=== PATIENT | female | born 2000 | race Caucasian/White ===

== ENCOUNTER 2023-01-10 22:50 | Emergency (ER) | payer OTHER, SELFPAY ==
--- NOTE | 2023-01-10 | ECG_ITS ---
Test Reason : SYNCOPE Blood Pressure : / mmHG Vent. Rate : 083 BPM Atrial Rate : 083 BPM P-R Int : 132 ms QRS Dur : 070 ms QT Int : 358 ms P-R-T Axes : 039 054 030 degrees QTc Int : 420 ms Normal sinus rhythm with sinus arrhythmia Normal ECG No previous ECGs available Referred By: Generic ED Physician Electronically Signed By:MAIRA MA MD
[2023-01-10 22:59] VITALS: BP 102/48; PULSE 90; O2SAT 100; BMI 20.4
[2023-01-10 23:04] VITALS: BP 105/56; PULSE 81; RESP 16; TEMP 36.9; O2SAT 99
[2023-01-10 23:20] VITALS: O2SAT 98
[2023-01-10 23:21] LABS: MANUAL DIFF FLAG NO
[2023-01-10 23:22] LABS: Basophils Percent Auto 0.1 % (0-2); Eosinophils Absolute Auto 0.1 X10*3/uL (0.0-0.4); Eosinophils Percent Auto 1.5 % (0-4); Hematocrit 31.9 % (37.0-47.0); Hemoglobin 10.8 g/dl (12.0-16.0); Imm Gran Abs Auto 0.04 X10*3/uL (0.00-0.03); Imm Gran Pct Auto 0.5 % (0.0-0.4); Lymphocytes Absolute Auto 1.8 X10*3/uL (1.2-4.9); Lymphocytes Percent Auto 21.5 % (20-40); Mean Corpuscular HGB Conc 33.9 g/dl (31.0-35.0); Mean Corpuscular Hemoglobin 30.4 pg (27.0-33.0); Mean Corpuscular Volume 89.9 fL (80.0-98.0); Mean Platelet Volume 9.6 fL (9.4-12.3); Monocytes Absolute Auto 0.6 X10*3/uL (0.1-1.2); Monocytes Percent Auto 6.7 % (2-11); Neutrophils Absolute Auto 5.9 x10*3/uL (2.0-8.3); Neutrophils Percent Auto 69.7 % (45-73); Platelet Count 202 X10*3/uL (160-400); Red Blood Count 3.55 X10*6/uL (4.20-5.50); Red Cell Distribution Width 13.3 % (11.0-16.0); White Blood Count 8.4 X10*3/uL (4.8-10.8)
[2023-01-10 23:40] LABS: Alanine Aminotransferase 43 U/L (0-31); Albumin Level 3.5 g/dL (3.5-5.0); Alkaline Phosphatase 72 U/L (39-117); Anion Gap 12 (12-20); Aspartate Amino Transferase 31 U/L (5-31); Bilirubin Total 0.1 mg/dL (0.0-1.0); Blood Urea Nitrogen 8 mg/dL (9-16); Calcium 8.5 mg/dL (8.4-10.2); Carbon Dioxide 21 mmol/L (22-29); Chloride 108 mmol/L (96-108); Creatinine Clr Calc Pharmacy 109.9; Estimated Glomerular Filt Rate > 60; Glucose Random 88 mg/dL (60-115); Potassium 3.6 mmol/L (3.3-5.1); Sodium 137 mmol/L (135-145); Total Protein 6.4 g/dL (6.5-8.0)
[2023-01-10 23:55] LABS: Appearance Urine Clear; Color Urine Yellow; Glucose Urine UA Negative (Negative); Leukocyte Esterase Urine Trace (Negative); Nitrite Urine Negative (Negative); PH 7.5 (5.0-9.0); UMIC TRIGGER UACC YES; Urine Blood Negative (Negative); Urine Ketones Negative (Negative); Urine Protein Negative (Neg-Trace)
[2023-01-11] VITALS (7 sets, daily range): BP systolic 94–125; BP diastolic 50–70; PULSE 70–108; RESP 15–19; TEMP 36.6–36.7; O2SAT 96–100
[2023-01-11] LABS: Bacteria Urine None Seen (None Seen); Hyaline Casts Urine 0-2 /LPF (0-2); RBC Urine 0-2 /HPF (0-2); Squamous Epithelial Cell Urine 0-2 /HPF (0-2); WBC Urine 0-5 /HPF (0-5)
[2023-01-11 00:02] LABS: Troponin-I High Sensitivity < 2.7 ng/L (<3.5-17.0)
--- OUTSIDE RECORDS SUMMARY | 2023-01-11 00:06 | XMS_ITS | Continuity of Care Document ---
Author Name Unknown Organization [facility] al Address [address] [place] [address]- Care Team Providers Care Vein Pumper Name Role Phone Not on Staff, PCP Primary Care Physician Unavail able Encounter [facility] Date(s): 12/14/22 - 12/14/[address] [address]- Discharge Disposition: A-D/C Home Attending Physician: Foreign Bravo MD Admitting Physician: Foreign Bravo MD Referring Physician: Not on Staff, Referring MD Allergies, Adverse Reactions, Alerts No Known Medication Allergies Medications Ondansetron 0 Refills, Maintenance, 12/14/22 13:46:00 EDT, Partial fill upon patient request if the prescription is for a schedule II opioid drug. Start Date: 12/14/22 Status: Ordered Multivitamins By Mouth, Daily, 0 Refills, Maintenance, 12/14/22 13:46:00 EDT, Partial fill upon patient request if the prescription is for a schedule II opioid drug. Start Date: 12/14/22 Status: Ordered Sertraline By Mouth, Daily, 0 Refills, Maintenance, 12/14/22 13:46:00 EDT, Partial fill upon patient request if the prescription is for a schedule II opioid drug. Start Date: 12/14/22 Status: Ordered Problem List Condition Confirmation Course Effective Dates Status Health St atus Informant Underweight Confirmed Active Vital Signs Most recent to oldest [Reference Range]: 1 2 3 Height 159 cm (12/14/22 4:25 PM) 159 cm (12/14/22 1:45 PM) 159 cm (12/14/22 1:42 PM) Weight 48.6 kg (12/14/22 1:45 PM) Oxygen Saturation [94-100 %] 98 % (12/14/22 1:45 PM) 100 % (12/14/22 1:42 PM) Pulse Rate [55-90 bpm] 92 bpm *H* (12/14/22 4:25 PM) 135 bpm *H* (12/14/22 1:45 PM) 129 bpm *H* (12/14/22 1:42 PM) Blood Pressure [90-138/55-84 mm Hg] 120/70mm Hg (12/14/22 1:45 PM) Respiratory Rate [16-30 br/min] 18 br/min (12/14/22 1:45 PM) 14 br/min *L* (12/14/22 1:42 PM) Temperature [96.8-100.4 DegF] 98.1 DegF (12/14/22 1:45 PM) Mode of Delivery (Oxygen) Room air (12/14/22 1:45 PM) Room air (12/14/22 1:42 PM) Temperature Route Temporal (12/14/22 1:45 PM) Dry Weight 48.6 kg (12/14/22 1:45 PM) Note * Carlos Eduardo Polo: PERFORM Event Display: Patient Education Leaflets Authored Date: [id number] Bronchitis, No Antibiotics (Adult) ?? [id number] Bronchitis, No Antibiotics (Adult) Bronchitis is inflammation and swelling of the air passages (bronchial tubes) in your lungs. This is often caused by an infection. Your bronchitis was caused by a virus.??Symptoms include a dry, hacking cough that is worse at night. The cough may bring up yellow-green mucus. You may also feel shortof breath or wheeze. Other symptoms may include tiredness, chest discomfort, fever, and chills. This illness can be spread to other people in the first few days. It is spread through the air by coughing and sneezing. It is also spread by direct contact. This means touching the sick person and then touching your own eyes, nose, or mouth. Bronchitis that is caused by a virus is often not treated with antibiotic medicine. Instead, medicines may be given to help relieve symptoms. Symptoms can last up to 2 weeks. The cough may last much longer. Home care Follow these guidelines when caring for yourself at home: ??? If your symptoms are severe, rest at home for the first 2 to 3 days. When you go back to your daily tasks, don't let yourself get too tired. ??? Do not smoke. Stay away from secondhand smoke. ??? You may use raop-hdr-cjzdlfb medicine to control fever or pain. Or use another pain medicine as prescribed.??If you have chronic liver or kidney disease or have ever had a stomach ulcer or bleeding in your stomach or intestines, talk with your healthcare provider before using these medicines. Also talk to your provider if you are taking medicine to prevent blood clots. Aspirin should never be taken by anyone under age 18 who has a virus or fever. It may cause severe liver or brain damage. ??? Your body needs a lot of fluids now. Drink 6 to 8 glasses of fluids per day. This includes water, soft drinks, sports drinks, juices, tea, or soup. Extra fluids will help loosen mucus in your nose and lungs. ??? Your appetite may be low. A light diet is fine. ??? Gylg-zmg-duemdpo cough, cold, and sore-throat medicines will not shorten the manda gth of the illness. But they may help to reduce your symptoms. Don't use decongestants if you have high blood pressure. ?? Follow-up care Follow up with your healthcare provider, or as advised. If you had an X-ray or ECG (electrocardiogram), a specialist will review it. You will be told of any results that may affect your care. Ask your healthcare provider about the pneumococcal vaccines and a yearly flu shot. There are 2 kinds of pneumococcal vaccines. You may need both. You???re at higher risk of lung infection if any of these apply to you: ??? You are age 65 or older ??? You have a chronic lung disease ??? You have condition that affects your immune system ??? You smoke ?? When to get medical care Call your healthcare provider right away if you have any of these: ??? Fever of 100.4??F (38??C) orhigher ??? Coughing up more mucus ??? Facial pain or ear pain ??? Mild weakness, drowsiness, headache, or a stiff neck ?? Call 911 Call 911 if any of these occur: ??? Coughing up blood ??? Weakness, drowsiness, headache, or stiff neck that get worse ??? Trouble breathing, wheezing, or pain with breathing ??? Lips or skin looks blue, purple, or gabriel in color ??? Feeling of doom ?? Last Reviewed Date: 2021 ?? 0089-6226 [employer]. All rights reserved. This information is not intended as a substitute for professional medical care. Always follow your healthcare professional's instructions. ?? Patient Care team information Care Team Personnel Name: Not on Staff, PCP Position: [facility] Physician (General Medicine) Member Role: PCP Name: Irene Loera Position: [facility] ED RN W/OE and Tasks Member Role: Patient Care Provider Name: Foreign Bravo MD Position: [facility] ED Medicine MD Member Role: Admitting Physician Address: Address: [address] [place] [address]- [place] [address]- Name: Carlos Eduardo Polo Position: [facility] Associate Professional Member Role: ED Physician Out And Out Cigar Maker Hand Address: Address: [address] [place] [address] [place] [address]- Name: Lillie Polanco Position: [facility] ED TA [facility] Care Team Related Persons Name: NIRU MARIN Address: home [address] [place] [id number]
--- OUTSIDE RECORDS SUMMARY | 2023-01-11 00:06 | XMS_ITS | Continuity of Care Document ---
Author Name Unknown Organization [facility] [place] Address [address] [place] [address]- Care Team Providers Care Gear Shaver Set Up Operator Name Role Phone Not on Staff, PCP Primary Care Physician Unavail able Encounter [facility] Date(s): 04/02/22 - 05/02/22 [facility] [place] [address], [place] [address] Allergies, Adverse Reactions, Alerts No Known Medication Allergies Problem List Condition Confirmation Course Effective Dates Status Health St atus Informant Underweight Confirmed Active Patient Care team information Care Team Personnel Name: Not on Staff, PCP Position: S Physician (General Medicine) Member Role: PCP Care Team Related Persons Name: INRU MARIN Address: home [address] [place] [address]
--- OUTSIDE RECORDS SUMMARY | 2023-01-11 00:06 | XMS_ITS | Continuity of Care Document ---
Author Name Unknown Organization [facility] Address [address] [place] [address]- Care Team Providers Care Chain Carrier Name Role Phone Not on Staff, PCP Primary Care Physician Unavail able Encounter [facility] Date(s): 04/03/22 - 05/03/22 [facility] Adult [address] [place] [address]- Allergies, Adverse Reactions, Alerts No Known Medication Allergies Problem List Condition Confirmation Course Effective Dates Status Health St atus Informant Underweight Confirmed Active Patient Care team information Care Team Personnel Name: Not on Staff, PCP Position: S Physician (General Medicine) Member Role: PCP Care Team Related Persons Name: TOMASNIRU Address: home [address] [place] [address]
--- OUTSIDE RECORDS SUMMARY | 2023-01-11 00:06 | XMS_ITS | Continuity of Care Document ---
Author Name Unknown Organization [facility] Address [address] [place] [address]- Care Team Providers Care Sausage Machine Operator Name Role Phone Not on Staff, PCP Primary Care Physician Unavail able Encounter [facility] [id number] Date(s): 04/10/22 - 06/29/[address] [address]- Attending Physician: Lavern SONI, Iwona Oliveira Referring Physician: Keaton Nascimento Allergies, Adverse Reactions, Alerts No Known Medication Allergies Problem List Condition Confirmation Course Effective Dates Status Health St atus Informant Underweight Confirmed Active Patient Care team information Care Team Personnel Name: Not on Staff, PCP Position: S Physician (General Medicine) Member Role: PCP Care Team Related Persons Name: MARGARETTE MARINLUBA Address: home [address] [place] [address]
--- OUTSIDE RECORDS SUMMARY | 2023-01-11 00:06 | XMS_ITS | Continuity of Care Document ---
Author Name Unknown Organization [facility] Address [address] [place] [address]- Care Team Providers Care Continuous Process Machine Operator Name Role Phone Not on Staff, PCP Primary Care Physician Unavail able Encounter [facility] [id number] Date(s): 12/27/21 - 12/27/[address] [address]- Discharge Disposition: A-D/C Home Attending Physician: Dieter SONI, Mac Luis Admitting Physician: Mac Garcias MD Referring Physician: Not on Staff, Referring MD Allergies, Adverse Reactions, Alerts No Known Medication Allergies Problem List Condition Confirmation Course Effective Dates Status Health St atus Informant Underweight Confirmed Active Vital Signs Most recent to oldest [Reference Range]: 1 2 3 Height 160 cm (12/27/21 1:10 PM) 160 cm (12/27/21 11:03 AM) 160 cm (12/27/21 11:01 AM) Weight 45.7 kg (12/27/21 1:10 PM) 45.7 kg (12/27/21 11:03 AM) 45.7 kg (12/27/21 11:01 AM) Oxygen Saturation [94-100 %] 100 % (12/27/21 3:00 PM) 100 % (12/27/21 1:10 PM) 100 % (12/27/21 11:01 AM) Pulse Rate [55-90 bpm] 82 bpm (12/27/21 3:00 PM) 79 bpm (12/27/21 1:10 PM) 81 bpm (12/27/21 11:01 AM) Body Mass Index [18.5-24.99 kg/m2] 17.85 kg/m2 *L* (12/27/21 1:10 PM) 17.85 kg/m2 *L* (12/27/21 11:01 AM) Blood Pressure [90-138/55-84 mm Hg] 117/70mm Hg (12/27/21 3:00 PM) 106/63mm Hg (12/27/21 1:10 PM) 114/76mm Hg (12/27/21 11:01 AM) Respiratory Rate [16-30 br/min] 16 br/min (12/27/21 3:00 PM) 18 br/min (12/27/21 1:10 PM) 18 br/min (12/27/21 11:01 AM) Temperature [96.8-100.4 DegF] 98.1 DegF (12/27/21 11:01 AM) Mode of Delivery (Oxygen) Room air (12/27/21 3:00 PM) Room air (12/27/21 1:10 PM) Room air (12/27/21 11:01 AM) Blood pressure sites Arm, left (12/27/21 1:10 PM) Arm, left (12/27/21 11:01 AM) Temperature Route Temporal (12/27/21 11:01 AM) Dry Weight 45.7 kg (12/27/21 1:10 PM) 45.7 kg (12/27/21 11:03 AM) 45.7 kg (12/27/21 11:01 AM) Weight Obtained Via Standing scale (12/27/21 11:01 AM) Patient Care team information Personnel Name: Not on Staff, PCP
--- OUTSIDE RECORDS SUMMARY | 2023-01-11 00:06 | XMS_ITS | Continuity of Care Document ---
Author Name Unknown Organization [facility] Address [address] [place] [address]- Care Team Providers Care Forest Supervisor Name Role Phone Not on Staff, PCP Primary Care Physician Unavail able [id number] Date(s): 04/10/22 - 05/10/22 [facility] [address] [place] [address]- Allergies, Adverse Reactions, Alerts No Known Medication Allergies Problem List Condition Confirmation Course Effective Dates Status Health St atus Informant Underweight Confirmed Active Patient Care team information Care Team Personnel Name: Not on Staff, PCP Position: S Physician (General Medicine) Member Role: PCP Care Team Related Persons Name: NIRU MARIN Address: home [address] [place] [address]
--- OUTSIDE RECORDS SUMMARY | 2023-01-11 00:06 | XMS_ITS | Continuity of Care Document ---
Author Name Unknown Organization [facility] Address [address] [place] [address]- Care Team Providers Care Inspector And Clerk Name Role Phone Not on Staff, PCP Primary Care Physician Unavail able Encounter [facility] [id number] Date(s): 05/30/22 - 06/29/22 [facility] [place] [address]- Attending Physician: Felton Lerma Admitting Physician: Felton Lerma Referring Physician: Admtr [id number] Allergies, Adverse Reactions, Alerts No Known Medication Allergies Problem List Condition Confirmation Course Effective Dates Status Health St atus Informant Underweight Confirmed Active Patient Care team information Care Team Personnel Name: Not on Staff, PCP Position: S Physician (General Medicine) Member Role: PCP Care Team Related Persons Name: TOMASNIRU Address: home [address] [place] [address]
--- NOTE | 2023-01-11 03:42 | PC.NURSE ---
This RN assumed care of patient at 1500. Pt continues to rest on stretcher, respirations even and unlabored, skin pwd, alert and oriented x4. Pt reports feeling dizzy at this time. This RN educated patient to not get up without assistance. Pt agreeable. Awaiting provider at this time
--- NOTE | 2023-01-11 06:10 | PC.NURSE ---
This RN assessed heart tones, strong heart beat at 138 BPM.
--- NOTE | 2023-01-11 06:27 | ED.SYNCOPE ---
HPI - Syncope General Chief Complaint: Syncope Stated Complaint: SYNCOPAL EPISODE, PER EMS Time Seen by Provider: 01/11/23 06:24 Source: patient and EMS Mode of arrival: EMS Limitations: no limitations History of Present Illness HPI narrative: 22 yo female who is currently 20w6d presents to the ER for evaluation of a syncopal episode that happened yesterday. She states she woke up yesterday feeling very dizzy. She was nauseated and vomited x3. She felt weak and fatigued. No fever, chills, abdominal pain, pelvic pain, cramping or vaginal bleeding. She states last night when she was sitting on the ground with her partner she had a brief syncopal episode lasting about 5 seconds. Prior to this she felt like the whole room was spinning. No history of similar episodes. No post event confusion. No SOB or chest pain. Still feels dizzy and nauseous. She reports decreased movement this morning but she has not had anything to eat since yesterday at 4pm. FHT 138 this morning. complaint: loss of consciousness and felt faint Onset (ago): hour(s) (10) Duration of episode: 5 -: second(s) Prodromal symptoms: vision changes, lightheaded and nausea/vomiting Witnessed: Yes - by Bystander Context: at rest Injuries sustained associated with event: none Current symptoms: lightheaded and nausea History: other () Treatments prior to arrival: none Related Data Allergies Allergy/AdvReac Type Severity Reaction Status Date / Time No Known Allergies Allergy Verified 01/10/23 23:05 Review of Systems Review of Systems: Yes all other systems are reviewed and are negative [facility] Social History Social History Smoked in Last 30 Days: No Advance Directives: No Advance Directives Information Provided: No Patient : Yes Physical Exam Vital Signs: Vital Signs: Last Vital Signs Temp 98.0 F 01/11/23 03:42 Pulse 88 01/11/23 10:14 Resp 16 01/11/23 10:14 BP 94/62 01/11/23 10:14 Pulse Ox 98 01/11/23 10:14 O2 Del Method Room Air 01/11/23 10:14 BMI result Body Mass Index 20.4 Appearance: Alert. Oriented X3. No acute distress. Head: normocephalic, atraumatic. Eyes: Pupils equal, round and reactive to light. ENT: Pharynx normal. No tonsillar swelling or exudate. Neck: Normal inspection. Neck supple. CVS: Normal heart rate and rhythm. Pulses normal. Respiratory: No respiratory distress. Breath sounds normal. Abdomen: Soft w/ gravid uterus palpable at the level of the ubilicus. normal active +BS x4 Skin: Skin warm and dry. Normal skin color. Normal skin turgor. No rashes. Extremities: No lower extremity edema. No joint swelling. Neuro/psych: Oriented X 3. No motor deficit. No sensory deficit. CN II-XII intact. Normal speech and cognition. Course Reevaluation(s) Reevaluation #1: Spoke with Dr. Tran Sanchez OB at [facility] who is recommending keeping the patient here, continue IVF and monitoring medically. No role for monitoring given she is only 20 weeks. Time: 07:58 Reevaluation #2: patient given 2L IVF. she is feeling better and tolerating PO. up and ambulating around the ER. at this time comfortable w/ discharge home with close OB follow up. strict return precautions discussed Time: 10:40 Consultations Consultation #1: OB Dr. Rider Medications Administered Discontinued Medications Generic Name Dose Route Start Last Admin Trade Name Freq PRN Reason Stop Dose Admin Sodium Chloride 1,000 mls @ 999 mls/hr 01/11/23 07:00 01/11/23 08:38 Ns IVCONT 01/11/23 08:00 Infused .Q1H1M TONEY Infusion Sodium Chloride 1,000 mls @ 999 mls/hr 01/11/23 09:00 01/11/23 10:13 Ns IVCONT 01/11/23 10:00 Infused .Q1H1M TONEY Infusion Ondansetron HCl 4 mg 01/11/23 06:51 01/11/23 07:05 Ondansetron Hcl 4 Mg/2 Ml Vial IVPUSH 01/11/23 06:52 4 mg ONCE ONE Administration Medical Decision Making Medical Decision Making MDM Narrative: 22 yo currently 20w6d presenting with dizziness, N/V, and brief syncopal episode last night. Mild tachycardia on arrival w/ BP 90-100s. Orthostatic VS are negative. Labs show very mild anemia. She had unremarkable EKG and troponin negative x2. Her syncopal episode is most likely due to hypovolemia, possible vasovagal syncope. Highly doubt PE with no hypoxia, chest pain, SOB or evidence of DVT on exam. Trop negative reassuing - if had clot burden enough to cause hemodyanamic collapse would expect trop leak and other symptoms. case d/w dr. rider who recommended tx to [facility] for medical monitoring, not monitoring. FHT here 138 spoke w/ OB at [facility] who recommends patient stay here for ongoing medical management of syncope and dehydration given 2L IVF and zofran. up and ambulating, tolerating po and feeling better at this time comfortable w/ discharge home with close OB follow up. strict return precautions were discussed w/ patient and partner who agree w/ plan. Differential Diagnosis Differential Diagnoses: The differential diagnosis associated with the presentation includes orthostatic hypotension, vasovagal syncope, dehydration/hypovolemia, less likely pulmonary embolism Admission/Observation Consideration of admission/observation: Escalation of care including admission/observation considered Consult Healthcare Provider Management of the patient was discussed with: Internet Sales Director Dr. Rider recommend transferring to [facility] for monitoring Lab Data MDM Lab Attestation statement: I reviewed the patient's lab results. mild anemia, trop negative x2 01/10/23 23:15 01/10/23 23:15 Labs: Lab Results 01/10/23 01/10/23 01/11/23 Range/Units 23:15 23:34 06:03 WBC 8.4 (4.8-10.8) X10*3/uL RBC 3.55 L (4.20-5.50) X10*6/uL Hgb 10.8 L (12.0-16.0) g/dl Hct 31.9 L (37.0-47.0) % MCV 89.9 (80.0-98.0) fL MCH 30.4 (27.0-33.0) pg MCHC 33.9 (31.0-35.0) g/dl RDW 13.3 (11.0-16.0) % Plt Count 202 (160-400) X10*3/uL MPV 9.6 (9.4-12.3) fL Immature Gran % (Auto) 0.5 H (0.0-0.4) % Neut % (Auto) 69.7 (45-73) % Lymph % (Auto) 21.5 (20-40) % [place] % (Auto) 6.7 (2-11) % Eos % (Auto) 1.5 (0-4) % Baso % (Auto) 0.1 (0-2) % Lymph # (Auto) 1.8 (1.2-4.9) X10*3/uL [place] # (Auto) 0.6 (0.1-1.2) X10*3/uL Eos # (Auto) 0.1 (0.0-0.4) X10*3/uL Baso # (Auto) 0.0 (0.0-0.2) X10*3/uL Abs Immat Gran (auto) 0.04 H (0.00-0.03) X10*3/uL Absolute Neuts (auto) 5.9 (2.0-8.3) x10*3/uL Absolute Nucleated RBC 0.000 (0.0-0.012) X10*3/uL Nucleated RBC % (auto) 0.0 (0.0-0.2) /100WBC Sodium 137 (135-145) mmol/L Potassium 3.6 (3.3-5.1) mmol/L Chloride 108 (96-108) mmol/L Carbon Dioxide 21 L (22-29) mmol/L Anion Gap 12 (12-20) BUN 8 L (9-16) mg/dL Creatinine 0.65 (0.5-1.4) mg/dL Estim Creat Clear Calc 109.9 Estimated GFR > 60 Random Glucose 88 (60-115) mg/dL Calcium 8.5 (8.4-10.2) mg/dL Total Bilirubin 0.1 (0.0-1.0) mg/dL AST 31 (5-31) U/L ALT 43 H (0-31) U/L Alkaline Phosphatase 72 (39-117) U/L Troponin I High Sens < 2.7 < 2.7 (<3.5-17.0) ng/L Total Protein 6.4 L (6.5-8.0) g/dL Albumin 3.5 (3.5-5.0) g/dL Urine Color Yellow Urine Appearance Clear Urine pH 7.5 (5.0-9.0) Ur Specific [place] 1.010 (1.005-1.025) Urine Protein Negative (Neg-Trace) mg/dL Urine Glucose (UA) Negative (Negative) mg/dL Urine Ketones Negative (Negative) mg/dL Urine Blood Negative (Negative) Urine Nitrite Negative (Negative) Ur Leukocyte Esterase Trace H (Negative) Urine RBC 0-2 (0-2) /HPF Urine WBC 0-5 (0-5) /HPF Ur Squamous Epith Cells 0-2 (0-2) /HPF Urine Bacteria None Seen (None Seen) Hyaline Casts 0-2 (0-2) /LPF COVID-19 (JAROD) (Negative) COVID-19 Clin Com Influenza Type A (MEGAN) (Negative) Influenza Type B (MEGAN) (Negative) Influenza A & B Note 01/11/23 Range/Units 07:48 WBC (4.8-10.8) X10*3/uL RBC (4.20-5.50) X10*6/uL Hgb (12.0-16.0) g/dl Hct (37.0-47.0) % MCV (80.0-98.0) fL MCH (27.0-33.0) pg MCHC (31.0-35.0) g/dl RDW (11.0-16.0) % Plt Count (160-400) X10*3/uL MPV (9.4-12.3) fL Immature Gran % (Auto) (0.0-0.4) % Neut % (Auto) (45-73) % Lymph % (Auto) (20-40) % [place] % (Auto) (2-11) % Eos % (Auto) (0-4) % Baso % (Auto) (0-2) % Lymph # (Auto) (1.2-4.9) X10*3/uL [place] # (Auto) (0.1-1.2) X10*3/uL Eos # (Auto) (0.0-0.4) X10*3/uL Baso # (Auto) (0.0-0.2) X10*3/uL Abs Immat Gran (auto) (0.00-0.03) X10*3/uL Absolute Neuts (auto) (2.0-8.3) x10*3/uL Absolute Nucleated RBC (0.0-0.012) X10*3/uL Nucleated RBC % (auto) (0.0-0.2) /100WBC Sodium (135-145) mmol/L Potassium (3.3-5.1) mmol/L Chloride (96-108) mmol/L Carbon Dioxide (22-29) mmol/L Anion Gap (12-20) BUN (9-16) mg/dL Creatinine (0.5-1.4) mg/dL Estim Creat Clear Calc Estimated GFR Random Glucose (60-115) mg/dL Calcium (8.4-10.2) mg/dL Total Bilirubin (0.0-1.0) mg/dL AST (5-31) U/L ALT (0-31) U/L Alkaline Phosphatase (39-117) U/L Troponin I High Sens (<3.5-17.0) ng/L Total Protein (6.5-8.0) g/dL Albumin (3.5-5.0) g/dL Urine Color Urine Appearance Urine pH (5.0-9.0) Ur Specific [place] (1.005-1.025) Urine Protein (Neg-Trace) mg/dL Urine Glucose (UA) (Negative) mg/dL Urine Ketones (Negative) mg/dL Urine Blood (Negative) Urine Nitrite (Negative) Ur Leukocyte Esterase (Negative) Urine RBC (0-2) /HPF Urine WBC (0-5) /HPF Ur Squamous Epith Cells (0-2) /HPF Urine Bacteria (None Seen) Hyaline Casts (0-2) /LPF COVID-19 (JAROD) Negative (Negative) COVID-19 Clin Com See Note Influenza Type A (MEGAN) Negative (Negative) Influenza Type B (MEGAN) Negative (Negative) Influenza A & B Note See Note Independent Interpretation I performed an independent interpretation of an: EKG Interpretation: ekg w/ normal sinus rhythm w/ sinus arrythmia, HR 83bpm, normal IA interval and normal QTc, no ST segment elevations or depressions Independent Historian Clinical information obtained from an independent historian. History obtained from or confirmed by: Spouse Prescription Management I considered prescription management with: Other (antiemetics) Chronic Conditions Patient?s care impacted by: Other () Critical Care Time Critical Care Time Critical Care Time: Yes Total Critical Care Time: 46 Attestation: I have personally provided critical care time exclusive of time spent on separately billable procedures. Time includes review of lab data, radiology results, discussion with consultants, and monitoring for potential decompensation. Intervention performed as documented. Discharge Plan Discharge Clinical Impression: Syncope Qualifiers: Syncope type: unspecified Qualified Code(s): R55 - Syncope and collapse Patient Disposition: Home, Self-Care Instructions: Syncope (DC) Additional Instructions: Your lab workup today was reassuring Recommend rest, plenty of hydration Follow up with your OB tomorrow If you develop new or worsening symptoms call 911 or come back to the ER for further evaluation.
[2023-01-11 06:28] LABS: Troponin-I High Sensitivity < 2.7 ng/L (<3.5-17.0)
--- NOTE | 2023-01-11 07:03 | PC.NURSE ---
Alert and oriented, denies pain. iv started and fluids running per order
[2023-01-11] MEDS: 0.9 % Sodium Chloride 1,000 ML 999 ML IVCONT ×2 (07:05→09:16)
[2023-01-11] MEDS: ondansetron HCL 4 MG/2 ML VIAL IVPUSH (07:05)
--- NOTE | 2023-01-11 07:06 | P.CONOB_ITS ---
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 The patient was feeling very dizzy, nauseated and vomited x3. No associated shortness of breath, chest pain, fever, chills, abdominal pain, pelvic pain, cramping , leakage of fluid or vaginal bleeding. She states last night when she was sitting on the ground with her partner she had a brief syncopal episode lasting about 5 seconds. 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 normal active +BS x4 Neurological exam within normal heart rate 138 [employer] AND RE[employer]USTICIZING OPERATOR - Results Labs 01/10/23 23:15 01/10/23 23:15 Labs: Short CBC 01/10/23 Range/Units 23:15 WBC 8.4 (4.8-10.8) X10*3/uL Hgb 10.8 L (12.0-16.0) g/dl Hct 31.9 L (37.0-47.0) % Plt Count 202 (160-400) X10*3/uL BMP 01/10/23 23:15 Sodium 137 Potassium 3.6 Chloride 108 Carbon Dioxide 21 L BUN 8 L Creatinine 0.65 Calcium 8.5 Liver Function 01/10/23 Range/Units 23:15 Total Bilirubin 0.1 (0.0-1.0) mg/dL AST 31 (5-31) U/L ALT 43 H (0-31) U/L Alkaline Phosphatase 72 (39-117) U/L Albumin 3.5 (3.5-5.0) g/dL Urine 01/10/23 Range/Units 23:34 Urine Color Yellow Urine Appearance Clear Urine pH 7.5 (5.0-9.0) Ur Specific [place] 1.010 (1.005-1.025) Urine Protein Negative (Neg-Trace) mg/dL Urine Glucose (UA) Negative (Negative) mg/dL Assessment and Plan (1) Syncope: Qualifiers: Syncope type: unspecified Qualified Code(s): R55 - Syncope and collapse Status: Acute 20 weeks and 6 of gestation was nausea and vomiting, dizziness and syncope Plan Recommended the following to DIANNE Cordova: Transfer the patient to [facility] since the patient is having nausea and vomiting and needs IV hydration with observation and there is no maternity unit at [facility]. I spent a total of 20 minute reviewing the chart, communicating with the emergency room provider and documenting in the medical record Time Spent With Patient Time: Total time managing care of this patient today ____ minutes.
--- NOTE | 2023-01-11 07:43 | PC.NURSE ---
Patient reports while in bed she fainted,states room was spinning. provider aware stating waiting for return call from OB
[2023-01-11 08:06] LABS: COVID-19 Test Negative (Negative); IDNOW Serial# 08D9AD1C
[2023-01-11 08:07] LABS: IDNOW Serial# BCCEAD1C; Influenza A Negative (Negative); Influenza B2 Negative (Negative)
--- NOTE | 2023-01-11 10:15 | PC.NURSE ---
pt pressure soft - 94/52, PA aware. food and drink given. Pt walked to bathroom, no dizziness, even and steady gait
== END 2023-01-11 11:06 | disposition home or self-care (01) ==
PROVIDERS: Physician Assistant; Emergency Provider Emergency Medicine
DX: R55 Syncope and collapse (principal); R11.2 Nausea with vomiting, unspecified; R42 Dizziness and giddiness; I49.8 Other specified cardiac arrhythmias; Z11.52 Encounter for screening for COVID-19; Z20.822 Contact with and (suspected) exposure to COVID-19; Z79.899 Other long term (current) drug therapy
CPT/HCPCS: 36415; 80053; 81001; 84484; 85025; 87502; 87635; 93005; 96361; 96374; 99284; 99285; J2405

== ENCOUNTER → 2023-01-11 00:04 | Outpatient (BNV) | payer OTHER, SELFPAY | PROVIDERS: Emergency Provider Emergency Medicine; Visit Provider Obstetrics & Gynecology | DX: R55 Syncope and collapse (principal) | CPT/HCPCS: 99283 ==